=== PATIENT | male | born 1995 | race African-American/Black ===

== ENCOUNTER 2023-06-13 12:11 | Emergency (ER) | payer OTHER, SELFPAY ==
[2023-06-13 12:15] VITALS: BP 114/72; PULSE 95; RESP 16; TEMP 36.9; O2SAT 99
[2023-06-13 12:31] LABS: Appearance Urine Clear (Clear); Bacteria Urine None Seen /hpf; Bilirubin Urine Negative (Negative); Blood Urine Negative (Negative); Color Urine Yellow (Yellow); Glucose Urine UA Negative (Negative); Ketones Urine Trace mg/dL (Negative); Leukocyte Esterase Ur 2+ LEU/UL (Negative); Nitrate Urine Negative (Negative); Non Pathogenic Casts 0-2; Protein Urine Negative (Negative); RBC Urine 0-2 /hpf (0-2); Specific Grav Ur 1.026 (1.001-1.035); Squamous Epithelial Cell Urine None seen /hpf (Few); WBC Urine >100 /hpf; pH Urine 6.5 (5.0-9.0)
[2023-06-13 12:32] LABS: Add Urine Microscopic? YES
--- NOTE | 2023-06-13 14:10 | PC.NURSE ---
labratory contacted regarding sti add ons to urine
--- NOTE | 2023-06-13 14:44 | ED.MALEGU ---
HPI - Male Genitourinary General Chief complaint: Urogenital-Male Stated complaint: possible uti Time Seen by Provider: 06/13/23 13:20 History of Present Illness HPI Narrative: Patient is a 28-year-old male who presents ER with burning urination. Ongoing for 2 days. Denies urethral discharge. No testicular pain or swelling. Reports he has unprotected sex every other day. Last unprotected sex was 2 days ago. No known STD exposure. He does have concern for STDs however. Related Data Allergies Allergy/AdvReac Type Severity Reaction Status Date / Time No Known Allergies Allergy Verified 06/13/23 13:01 Review of Systems Constitutional: Constitutional: Reports no additional constitutional complaints Gastrointestinal: Gastrointestinal: Reports no additional gastrointestinal complaints Genitourinary: Genitourinary: Denies oliguria, Denies genital lesions, Reports dysuria, Denies penile discharge and Denies testicular pain PMFSH Past Medical History Medical History (Updated 06/13/23 @ 16:02 by Ian Winkler MD) Healthy adult male Surgical History Surgical History (Updated 06/13/23 @ 14:45 by Ian Winkler MD) No history of previous surgery Exam Narrative: GENERAL: Well-appearing, well-nourished, and in no acute distress. HEAD: Normocephalic, atraumatic. ENT: Mucous membranes moist. EXTREMITIES: Normal range of motion. No edema. SKIN: Warm, dry, no rash. NEURO: No focal deficits. Alert and oriented x3. PSYCH: Normal mood and affect. Course Course Emergency Course: Patient educated about safe sex practices and need for his partners to be treated. He received ceftriaxone here. Doxycycline for home. Vital Signs Vital signs: Vital Signs Temperature 98.4 F 06/13/23 12:15 Pulse Rate 95 06/13/23 12:15 Respiratory Rate 16 06/13/23 12:15 Blood Pressure 114/72 06/13/23 12:15 Pulse Oximetry 99 06/13/23 12:15 Oxygen Delivery Room Air 06/13/23 12:15 Temperature 98.4 F 06/13/23 12:15 Pulse Rate 95 06/13/23 12:15 Respiratory Rate 16 06/13/23 12:15 Blood Pressure 114/72 06/13/23 12:15 Pulse Oximetry 99 06/13/23 12:15 Oxygen Delivery Room Air 06/13/23 12:15 MDM - Male Genitourinary Lab Data Labs: Lab Results 06/13/23 Range/Units 12:19 Urine Color Yellow (Yellow) Urine Appearance Clear (Clear) Urine pH 6.5 (5.0-9.0) Ur Specific [place] 1.026 (1.001-1.035) Urine Protein Negative (Negative) mg/dL Urine Glucose (UA) Negative (Negative) mg/dL Urine Ketones Trace H (Negative) mg/dL Ur Blood (Man) Negative (Negative) Urine Nitrate Negative (Negative) Urine Bilirubin Negative (Negative) Urine Urobilinogen 1.0 (<2.0) mg/dL Leukocyte Esterase Rfl 2+ H (Negative) SHIRAZ/UL Urine RBC 0-2 (0-2) /hpf Urine WBC >100 H /hpf Ur Squamous Epith Cells None seen (Few) /hpf Urine Bacteria None seen /hpf Urine Casts 0-2 C. trachomatis (PCR) Detected A (NOT DETECTE) N. gonorrhoeae (PCR) Detected A (NOT DETECTE) T. vaginalis (PCR) Not detected (NOT DETECTE) T. vaginalis Amp RNA Cancelled Discharge Plan Discharge Clinical Impression: Gonorrhea, Chlamydia Patient Disposition: Home, Self-Care Condition: Stable Instructions: Antibiotic Form, Chlamydia (ED), Safe Sex Practices (ED), Gonorrhea (ED) Additional Instructions: You received a shot of antibiotic to treat her diarrhea. You will need to take 1 week of antibiotics to treat your chlamydia. Contact your sex partners to inform them that they need to be treated for infection. Prescriptions: New doxycycline monohydrate 100 mg capsule 100 mg PO BID Qty: 14 0RF Follow-up/Referrals: Davonte Santacruz MD [Physician] - 1 Week PHYSICIAN,DIST[employer]ORDINATOR [Primary Care Provider] -
[2023-06-13 15:35] LABS: Trichomonas Vag PCR NOT DETECTED (NOT DETECTE)
[2023-06-13 15:57] LABS: Chlamydia trachomatis DETECTED (NOT DETECTE); Neisseria gonorrhoeae PCR DETECTED (NOT DETECTE)
[2023-06-13] MEDS: cefTRIAXone 1 GM VIAL 0.5 GM IM (16:15)
== END 2023-06-13 16:15 | disposition home or self-care (01) ==
PROVIDERS: Emergency Provider Emergency Medicine
DX: A54.9 Gonococcal infection, unspecified (principal); A56.8 Sexually transmitted chlamydial infection of other sites
CPT/HCPCS: 81001; 87086; 87491; 87591; 87661; 96372; 99283; J0696